=== PATIENT | male | born 1985 | race Caucasian/White ===

== ENCOUNTER 2017-05-11 11:19 | Inpatient (IN) | payer OTHER ==
[2017-05-11 12:05] VITALS: BMI 27.1
--- NOTE | 2017-05-11 14:51 | HP ---
CIWA Score - CIWA Score Nausea/Vomitin Muscle Tremors: 3 Anxiety: 3 Agitation: 3 Paroxysmal Sweats: 3 Orientation: 0-Oriented Tacttile Disturbances: 2-Mild Itch/Numbness/Burn Auditory Disturbances: 2-Mild Harshness/Frighten Visual Disturbances: 2-Mild Sensitivity Headache: 2-Mild CIWA-Ar Total Score: 23 Admission ROS BHS - HPI Chief Complaint: i need help to stop drinking alcohol Allergies/Adverse Reactions: Allergies Allergy/AdvReac Type Severity Reaction Status Date / Time No Known Allergies Allergy Verified 05/11/17 14:35 History of Present Illness: this 31 years old male with alcohol dependence,seeking detox,never been in detox before, depression Exam Limitations: No Limitations - Ebola screening Have you been sick,other than usual withdrawal symptoms: No - Review of Systems Constitutional: Loss of Appetite, Malaise, Night Sweats, Weakness EENT: reports: Nose Congestion Respiratory: reports: No Symptoms reported Cardiac: reports: No Symptoms Reported GI: reports: Nausea, Vomiting, Abdominal cramping : reports: No Symptoms Reported Musculoskeletal: reports: Back Pain, Muscle Pain Integumentary: reports: Dryness Neuro: reports: Headache, Tremors Endocrine: reports: No Symptoms Reported Hematology: reports: No Symptoms Reported Psychiatric: reports: Depressed Patient History - Patient Medical History Hx Asthma: No Hx Chronic Obstructive Pulmonary Disease (COPD): No Hx Cancer: No Hx Cardiac Disorders: No Hx Congestive Heart Failure: No Hx Hypertension: No Hx Hypercholesterolemia: No Hx Pacemaker: No HX Cerebrovascular Accident: No Hx Seizures: No Hx Dementia: No Hx Diabetes: No Hx Gastrointestinal Disorders: No Hx Liver Disease: No Hx Genitourinary Disorders: No Hx Sexually Transmitted Disorders: No Hx Renal Disease (ESRD): No Hx Thyroid Disease: No Hx Human Immunodeficiency Virus (HIV): No (2014 negative) Hx Hepatitis C: No Hx Depression: Yes Hx Suicide Attempt: No Hx Bipolar Disorder: No Hx Schizophrenia: No Other Medical History: no suicidal,no homicidal - Patient Surgical History Past Surgical History: No - PPD History Previous Implant?: No Implanted On Prior [facility] Admission?: No PPD to be Administered?: Yes - Smoking Cessation Smoking history: Never smoked - Substance & Tx. History Hx Alcohol Use: Yes Hx Substance Use: No Substance Use Type: Alcohol Hx Substance Use Treatment: No - Substances Abused Alcohol Route: Oral Frequency: Daily Amount used: 10-15 BEERS OR GLASSES OF TY Age of first use: 26 Date of Last Use: 05/09/17 Family Disease History - Family Disease History Family History: Denies Admission Physical Exam [facility] - Vital Signs Vital Signs: Vital Signs - 24 hr 05/11/17 11:56 Temperature 97.1 F L Pulse Rate 54 L Respiratory 20 Rate Blood Pressure 134/86 - Physical General Appearance: Yes: Moderate Distress, Tremorous, Irritable, Sweating, Anxious HEENTM: Yes: Hearing grossly Normal, Normal ENT Inspection, Pharynx Normal Respiratory: Yes: Lungs Clear, Normal Breath Sounds, No Respiratory Distress Neck: Yes: Within Normal Limits, Supple, Trachea in good position Breast: Yes: Within Normal Limits Cardiology: Yes: Within Normal Limits, Regular Rhythm, Regular Rate, S1, S2 Abdominal: Yes: Within Normal Limits, Normal Bowel Sounds, Non Tender, Flat, Soft Genitourinary: Yes: Within Normal Limits Back: Yes: Muscle Spasm Musculoskeletal: Yes: Back pain, Muscle Pain Extremities: Yes: Tremors Neurological: Yes: assistant softball coach II-XII NML intact, Alert, Motor Strength 5/5 Integumentary: Yes: Dry Lymphatic: Yes: Within Normal Limits - Diagnostic (1) Alcohol dependence with uncomplicated withdrawal Current Visit: Yes Status: Acute (2) Syncope Current Visit: Yes Status: Acute (3) Depression Current Visit: Yes Status: Acute Cleared for Admission [facility] - Detox or Rehab [facility] Level of Care: Medically Managed Detox Regimen/Protocol: Librium [facility] Breath Alcohol Content Breath Alcohol Content: 0 Urine Drug Screen - Results Drug Screen Negative: Yes
[2017-05-11] MEDS ORDERED: LOPERAMIDE HCL 2 MG CAPSULE PO PRN (14:59)
[2017-05-11] MEDS ORDERED: IBUPROFEN 400 MG TABLET (FP) PO PRN (14:59)
[2017-05-11] MEDS ORDERED: MAGNESIUM HYDROX 2400MG/30ML ORAL SUSPENSION 30 ML CUP PO PRN (14:59)
[2017-05-11] MEDS ORDERED: diphenhydrAMINE HCL 50 MG CAPSULE PO PRN (14:59)
[2017-05-11] MEDS ORDERED: MENTHOL/PHENOL 1 EACH UD MM PRN (14:59)
[2017-05-11] MEDS ORDERED: MAGNESIUM CITRATE 300 ML BOTTLE PO PRN (14:59)
[2017-05-11] MEDS ORDERED: ACETAMINOPHEN 325 MG TABLET (FP) PO PRN (14:59)
[2017-05-11] MEDS ORDERED: P-EPHED 60MG/TRIPROLIDI 2.5MG TABLET PO PRN (14:59)
[2017-05-11] MEDS ORDERED: hydrOXYzine PAMOATE 50 MG CAPSULE (FP) PO PRN (14:59)
[2017-05-11] MEDS ORDERED: guaiFENesin/D-METHORPHAN HB 10 ML UNIT-DOSE CUPS PO PRN (14:59)
[2017-05-11] MEDS ORDERED: MAG HYDROX/AL HYDROX/SIMETH 30 ML UNIT-DOSE CUP PO PRN (14:59)
[2017-05-11] MEDS ORDERED: chlordiazePOXIDE HCL 25 MG CAPSULE PO PRN (14:59)
[2017-05-11] MEDS ORDERED: chlordiazePOXIDE HCL 25 MG CAPSULE PO ONE (15:25)
[2017-05-11] MEDS: chlordiazePOXIDE HCL 25 MG CAPSULE PO SCH ×2 (17:14→22:48)
[2017-05-11 20:34] LABS: HIV 1 & 2 AB NEGATIVE; HIV 1 AGp24 NEGATIVE
[2017-05-11] MEDS ORDERED: THIAMINE HCL 100 MG TABLET (FP) PO SCH (22:00)
[2017-05-11 23:17] LABS: URINE APPEARANCE CLEAR; URINE BILIRUBIN NEGATIVE (NEGATIVE); URINE BLOOD 2+ (NEGATIVE); URINE COLOR YELLOW; URINE GLUCOSE (UA) NEGATIVE (NEGATIVE); URINE KETONE NEGATIVE (NEGATIVE); URINE LEUK ESTERASE NEGATIVE (NEGATIVE); URINE NITRITE NEGATIVE (NEGATIVE); URINE PROTEIN NEGATIVE (NEGATIVE); URINE UROBILINOGEN NEGATIVE mg/dL (0.2-1.0)
[2017-05-11 23:24] LABS: URINE BACTERIA RARE /hpf (NONE SEEN); URINE RBC <1 /hpf (0-3); URINE WBC 1 /hpf (3-5)
[2017-05-12] MEDS: chlordiazePOXIDE HCL 25 MG CAPSULE PO SCH ×2 (05:46→10:50)
--- NOTE | 2017-05-12 08:52 | CONSULT ---
[facility] Psychiatric Consult - Data Date of interview: 05/12/17 Admission source: [facility] Identifying data: This is 31 years old male with no psychiatric hospitalization history intoxciated with: Alcohol Substance Abuse History: - Smoking Cessation. Smoking history: Never smoked. - Substance & Tx. History. Hx Alcohol Use: Yes. Hx Substance Use: No. Substance Use Type: Alcohol. Hx Substance Use Treatment: No. - Substances Abused. Alcohol. Route: Oral. Frequency: Daily. Amount used: 10-15 BEERS OR GLASSES OF TY. Age of first use: 26. Date of Last Use: 05/09/17 Medical History: Syncope history, Psychiatric History: Patient reprots no past psychiatric history, no medications tasking prior to adsmnission. As per computer there is a history of depression. Denies suicidal history Physical/Sexual Abuse/Trauma History: Denies Additional Comment: Observation. Detox Unit Care Protocol Mental Status Exam - Mental Status Exam Alert and Oriented to: Person Cognitive Function: Fair Patient Appearance: Unkempt Mood: Anxious Affect: Mood Congruent Patient Behavior: Cooperative Speech Pattern: Appropriate Voice Loudness: Normal Thought Process: Goal Oriented Thought Disorder: Being Controlled Hallucinations: Denies Suicidal Ideation: Denies Homicidal Ideation: Denies Insight/Judgement: Fair Sleep: Difficulty falling asleep Appetite: Fair Muscle strength/Tone: Normal Gait/Station: Normal Additional Comments: Observation. 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 Detox Unit Care Protocol
[2017-05-12 09:52] VITALS: BP 120/70; PULSE 61; TEMP 96.8
[2017-05-12] MEDS ORDERED: PRENATAL VITAMINS W/ FOLIC ACID TABLET (FP) PO SCH (10:00)
[2017-05-12 10:18] LABS: MCH 29.8 pg (25.7-33.7); MCHC 32.8 g/dl (32.0-35.9); MEAN CELL VOLUME 90.8 fl (80-96); MEAN PLT VOLUME 10.3 fl (7.5-11.1); PLATELET COUNT 211 K/MM3 (134-434); WHITE BLOOD COUNT 4.7 K/mm3 (4.0-10.0)
[2017-05-12 10:56] LABS: ALBUMIN 4.3 g/dl (3.4-5.0); ALK PHOS 67 U/L (45-117); ANION GAP 8 (8-16); BILIRUBIN,TOTAL 0.7 mg/dL (0.2-1.0); CALCIUM 9.5 mg/dL (8.5-10.1); CO2 29 mmol/L (21-32); CREATININE 0.8 mg/dL (0.7-1.3); GLUCOSE,RANDOM 91 mg/dL (74-106); SGOT/AST 39 U/L (15-37); SGPT/ALT 40 U/L (12-78); TOT PROT 7.1 g/dl (6.4-8.2)
--- NOTE | 2017-05-12 12:22 | EKG ---
Test Reason : Blood Pressure : / mmHG Vent. Rate : 050 BPM Atrial Rate : 050 BPM P-R Int : 192 ms QRS Dur : 104 ms QT Int : 434 ms P-R-T Axes : 067 057 048 degrees QTc Int : 395 ms SINUS BRADYCARDIA WITH SINUS ARRHYTHMIA MODERATE VOLTAGE CRITERIA FOR LVH, MAY BE NORMAL VARIANT EARLY REPOLARIZATION BORDERLINE ECG NO PREVIOUS ECGS AVAILABLE Confirmed by FREDERICK FOY MD ([id number]) on 05/12/2017 12:21:56 PM Referred By: Confirmed By:FREDERICK FOY MD
--- NOTE | 2017-05-12 15:54 | DS ---
[facility] Detox Discharge Summary Admission Date: 05/11/17 Discharge Date: 05/12/17 - History Present History: Alcohol Dependence Pertinent Past History: Insomnia - Physical Exam Results Vital Signs: Vital Signs Temperature 96.8 F L 05/12/17 09:51 Pulse Rate 61 05/12/17 09:51 Respiratory Rate 18 05/12/17 09:51 Blood Pressure 120/70 05/12/17 09:51 O2 Sat by Pulse Oximetry (%) Pertinent Admission Physical Exam Findings: Withdrawal sx. Laboratory Last Values WBC 4.7 K/mm3 (4.0-10.0) 05/12/17 05:45 RBC 5.09 M/mm3 (4.00-5.60) 05/12/17 05:45 Hgb 15.2 GM/dL (11.7-16.9) 05/12/17 05:45 Hct 46.2 % (35.4-49) 05/12/17 05:45 MCV 90.8 fl (80-96) 05/12/17 05:45 MCH 29.8 pg (25.7-33.7) 05/12/17 05:45 MCHC 32.8 g/dl (32.0-35.9) 05/12/17 05:45 RDW 13.0 % (11.9-15.9) 05/12/17 05:45 Plt Count 211 K/MM3 (134-434) 05/12/17 05:45 MPV 10.3 fl (7.5-11.1) 05/12/17 05:45 Sodium 140 mmol/L (136-145) 05/12/17 05:45 Potassium 4.6 mmol/L (3.5-5.1) 05/12/17 05:45 Chloride 103 mmol/L (98-107) 05/12/17 05:45 Carbon Dioxide 29 mmol/L (21-32) 05/12/17 05:45 Anion Gap 8 (8-16) 05/12/17 05:45 BUN 11 mg/dL (7-18) 05/12/17 05:45 Creatinine 0.8 mg/dL (0.7-1.3) 05/12/17 05:45 Creat Clearance w eGFR > 60 (>60) 05/12/17 05:45 Random Glucose 91 mg/dL (74-106) 05/12/17 05:45 Calcium 9.5 mg/dL (8.5-10.1) 05/12/17 05:45 Total Bilirubin 0.7 mg/dL (0.2-1.0) 05/12/17 05:45 AST 39 U/L (15-37) H 05/12/17 05:45 ALT 40 U/L (12-78) 05/12/17 05:45 Alkaline Phosphatase 67 U/L (45-117) 05/12/17 05:45 Total Protein 7.1 g/dl (6.4-8.2) 05/12/17 05:45 Albumin 4.3 g/dl (3.4-5.0) 05/12/17 05:45 Urine Color Yellow 05/11/17 20:00 Urine Appearance Clear 05/11/17 20:00 Urine pH 8.0 (5.0-8.0) 05/11/17 20:00 Ur Specific [place] 1.015 (1.005-1.025) 05/11/17 20:00 Urine Protein Negative (NEGATIVE) 05/11/17 20:00 Urine Glucose (UA) Negative (NEGATIVE) 05/11/17 20:00 Urine Ketones Negative (NEGATIVE) 05/11/17 20:00 Urine Blood 2+ (NEGATIVE) H 05/11/17 20:00 Urine Nitrite Negative (NEGATIVE) 05/11/17 20:00 Urine Bilirubin Negative (NEGATIVE) 05/11/17 20:00 Urine Urobilinogen Negative mg/dL (0.2-1.0) 05/11/17 20:00 Ur Leukocyte Esterase Negative (NEGATIVE) 05/11/17 20:00 Urine RBC <1 /hpf (0-3) 05/11/17 20:00 Urine WBC 1 /hpf (3-5) 05/11/17 20:00 Urine Bacteria Rare /hpf (NONE SEEN) 05/11/17 20:00 RPR Titer Nonreactive (NONREACTIVE) 05/12/17 05:45 HIV 1&2 Antibody Screen Negative 05/11/17 14:00 HIV P24 Antigen Negative 05/11/17 14:00 labs noted - Treatment Patient has Accepted a Rehab Referral to: [facility] - Medication Discharge Medications: Ambulatory Orders NK [No Known Home Medication] 05/11/17 - Diagnosis (1) Alcohol dependence with uncomplicated withdrawal Status: Acute (2) Alcohol induced insomnia Status: Acute (3) 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
[2017-05-12] MEDS ORDERED: chlordiazePOXIDE HCL 25 MG CAPSULE PO SCH (17:00)
[2017-05-13] MEDS ORDERED: chlordiazePOXIDE 5 MG CAPSULE PO SCH (17:00)
[2017-05-14] MEDS ORDERED: chlordiazePOXIDE HCL 10 MG CAPSULE PO SCH (17:00)
== END 2017-05-12 11:20 | disposition left against medical advice (07) | DRG 770 ==
LOC: YASAS 11:19 → Y3N 14:54
PROVIDERS: ADMIT Internal Medicine; ATTEND Internal Medicine
PROC: HZ2ZZZZ Detoxification Services for Substance Abuse Treatment (ICD-10-PCS; principal; 2017-05-11)
DX: F10.230 Alcohol dependence with withdrawal, uncomplicated (principal); F10.282 Alcohol dependence with alcohol-induced sleep disorder; F10.24 Alcohol dependence with alcohol-induced mood disorder; Z86.79 Personal history of other diseases of the circulatory system
CPT/HCPCS: 36415; 80053; 81003; 81015; 85027; 86593; 87389; 93005; 93010

== ENCOUNTER 2017-09-30 09:35 | Emergency (ER) | payer OTHER ==
[2017-09-30 09:46] VITALS: BP 124/77; PULSE 58; TEMP 98.4; BMI 25.7
[2017-09-30] MEDS ORDERED: SODIUM CHLORIDE 1,000 ML IV ONE (09:59)
--- NOTE | 2017-09-30 10:00 | PDOC ---
History of Present Illness - General Chief Complaint: Pain, Acute Stated Complaint: ABDOMINAL PAIN Time Seen by Provider: 09/30/17 09:39 History Source: Patient Past History - Past Medical History Allergies/Adverse Reactions: Allergies Allergy/AdvReac Type Severity Reaction Status Date / Time No Known Allergies Allergy Verified 09/30/17 09:36 Home Medications: Ambulatory Orders NK [No Known Home Medication] 05/11/17 Asthma: No Cancer: No Cardiac Disorders: No CVA: No COPD: No CHF: No DVT: No Dementia: No Diabetes: No GI Disorders: No Disorders: No HTN: No Hypercholesterolemia: No Kidney Stones: No Liver Disease: No Seizures: No Thyroid Disease: No - Reproductive History Testicular Surgery: No - Suicide/Smoking/Psychosocial Hx Smoking History: Never smoked Hx Alcohol Use: No Drug/Substance Use Hx: No Substance Use Type: Alcohol Hx Substance Use Treatment: No Abd/GI Specific PMHX - Complaint Specific PMHX Hepatitis: No Pancreatitis: No *Physical Exam - Vital Signs Last Vital Signs Temp Pulse Resp BP Pulse Ox 98.4 F 58 L 16 124/77 98 09/30/17 09:35 09/30/17 09:35 09/30/17 09:35 09/30/17 09:35 09/30/17 09:35 ED Treatment Course - LABORATORY CBC & Chemistry Diagram: 09/30/17 10:10 09/30/17 10:16 *DC/Admit/Observation/Transfer Diagnosis at time of Disposition: Abdominal pain Qualifiers: Abdominal location: unspecified location Qualified Code(s): R10.9 - Unspecified abdominal pain - Discharge Dispostion Disposition: HOME Condition at time of disposition: Improved Admit: No - Referrals - Patient Instructions Printed Discharge Instructions: DI for Abdominal Pain-Adult Additional Instructions: Avoid heavy meals , suggest high fiber diet Avoid alcohol - Post Discharge Activity
[2017-09-30 10:21] LABS: BASOPHIL 0.9 % (0-2.0); EOSINOPHIL 1.9 % (0-4.5); MCH 29.9 pg (25.7-33.7); MCHC 33.4 g/dl (32.0-35.9); MEAN CELL VOLUME 89.4 fl (80-96); MEAN PLT VOLUME 10.1 fl (7.5-11.1); NEUTROPHILS 59.6 % (42.8-82.8); PLATELET COUNT 218 K/MM3 (134-434); RDW 11.7 % (11.9-15.9); WHITE BLOOD COUNT 5.3 K/mm3 (4.0-10.8)
[2017-09-30 10:30] LABS: URINE APPEARANCE Clear; URINE BILIRUBIN Negative (NEGATIVE); URINE BLOOD Negative (NEGATIVE); URINE COLOR YELLOW; URINE GLUCOSE (UA) Negative (NEGATIVE); URINE KETONE Negative (NEGATIVE); URINE LEUK ESTERASE Negative (NEGATIVE); URINE NITRITE Negative (NEGATIVE); URINE PROTEIN Negative (NEGATIVE); URINE UROBILINOGEN 0.2 (0.2-1.0)
[2017-09-30 10:40] LABS: ALBUMIN 4.6 g/dl (3.5-5.0); ALK PHOS 49 U/L (32-92); ANION GAP 5 (8-16); BILIRUBIN,TOTAL 0.7 mg/dl (0.2-1.0); CALCIUM 9.5 mg/dl (8.4-10.2); CO2 27 mmol/L (22-28); CREATININE 0.7 mg/dl (0.6-1.3); GLUCOSE,RANDOM 91 mg/dl (74-106); SGOT/AST 26 U/L (10-42); SGPT/ALT 19 U/L (10-40); TOT PROT 6.9 g/dl (6.4-8.3)
== END 2017-09-30 13:13 | disposition home or self-care (01) ==
LOC: FER 09:35
PROC: 3E0337Z Introduction of Electrolytic and Water Balance Substance into Peripheral Vein, Percutaneous Approach (ICD-10-PCS; principal; 2017-09-30)
DX: R10.9 Unspecified abdominal pain (principal)
CPT/HCPCS: 36415; 74177-TC; 80053; 81003; 85025; 99283-25